=== PATIENT | male | born 1970 | race Caucasian/White ===

== ENCOUNTER 2018-08-14 14:08 | Emergency (ER) | payer OTHER ==
[~2018-08-14] VITALS: Ht 175.3 cm; Wt 93.0 kg
[2018-08-14] MEDS ORDERED: MOBIC15 MG PO (14:33)
[2018-08-14] MEDS ORDERED: MEDROLDOSEPACK PO (14:33)
[2018-08-14 15:14] VITALS: BP 168/118
== END 2018-08-14 15:15 | disposition home or self-care (01) ==
LOC: M.ERS 14:08
DX: S83.242A Other tear of medial meniscus, current injury, left knee, initial encounter (principal); I10 Essential (primary) hypertension; F17.210 Nicotine dependence, cigarettes, uncomplicated; W23.0XXA Caught, crushed, jammed, or pinched between moving objects, initial encounter; Y93.89 Activity, other specified; Y92.89 Other specified places as the place of occurrence of the external cause; Y99.0 Civilian activity done for income or pay